=== PATIENT | male | born 1990 | race African-American/Black ===

== ENCOUNTER 2017-09-02 15:41 | Emergency (ER) | payer SELFPAY ==
[~2017-09-02] VITALS: Ht 182.9 cm; Wt 77.1 kg
--- NOTE | 2017-09-02 16:33 | PHYS DOC ---
General Chief Complaint: ABDOMINAL PAIN Stated Complaint: ABDOMINAL PAIN,THINKS HAVING ALLERGIC REACTION Time Seen by MD: 16:29 Source: patient Exam Limitations: no limitations Problems: History of Present Illness Initial Comments Patient is a 27-year-old male who comes to the ED complaining of severe abdominal pain. Patient states that last night he was seen at [facility] emergency department with a complaint of hemorrhoids, somehow threw that evaluation he was diagnosed with urethritis and received Rocephin 1 g IM and Zithromax 1 g by mouth. He states that he tolerated those medications well and that he went home and has been resting. He says less than an hour before presenting to this facility today he was sitting on the sofa watching TV with his grandmother and he developed sudden onset severe epigastric/right sided abdominal pain. He describes it as if he's being stabbed, 10 out of 10, he cannot find a position of comfort and relays that the pain does radiate to his right flank. Last by mouth intake was pizza shortly before the pain began, he denies nausea vomiting, states his appetite is intact, last bowel movement was this morning described as normal, does state he's had some decreased urination but has seen no blood. He denies history of prior right upper quadrant pains, denies history of kidney stones, denies fever chills sweats or myalgias. He states his grandmother dropped him off here for further evaluation, she thinks he is having an allergic reaction to a medication he was given last night. Patient denies any rash no face throat or intraoral swelling no dyspnea or cough wheeze lump in throat or other respiratory symptoms. Patient is somewhat of a vague historian, does not appear to be altered/ intoxicated but rather either doesn't fully grasp the details of his evaluation and treatment at [facility] or perhaps wishes to be evasive. Patient denies frequent NSAID of alcohol intake, admits to smoking cigarettes and marijuana occasionally recreationally denies any other substance abuse. [facility] medical records have been requested. ED vital signs: 99.4, 55, 60 seen, 142/83, 100% room air Timing/Duration: 1 hour Severity: severe Modifying Factors: worse with eating, improves with other Associated Symptoms: other Allergies: Coded Allergies: No Known Drug Allergies (Unverified , 09/02/17) Past Medical History Medical History: no pertinent history Surgical History: noncontributory Social History Smoker: cigarettes Alcohol: occasionally Drugs: marijuana Review of Systems Constitutional: denies chills, denies diaphoresis, denies fever, denies malaise EENTM: denies nose congestion, denies throat pain, denies throat swelling, denies mouth swelling Respiratory: denies cough, denies shortness of breath, denies wheezing Cardiovascular: denies chest pain, denies palpitations, denies syncope Gastrointestinal: see HPI Genitourinary: see HPI Musculoskeletal: denies back pain, denies joint swelling, denies muscle pain, denies muscle stiffness, denies neck pain Psychiatric/Neurological: denies headache, denies numbness, denies paresthesia , denies weakness Hematologic/Lymphatic: denies blood clots, denies easy bleeding, denies easy bruising Immunological/Allergic: denies food allergy, denies grass allergy, denies mold allergy, denies pollen allergy Physical Exam General Appearance: moderate distress, thin Eyes: bilateral eye PERRL, bilateral eye EOMI, bilateral eye other ( conjunctivae injected no icterus) Ear, Nose, Throat: hearing grossly normal, normal ENT inspection, normal pharynx Neck: non-tender, supple Respiratory: normal breath sounds, no respiratory distress Cardiovascular: normal peripheral pulses, regular rate, rhythm Gastrointestinal: soft (nondistended, epigastric tenderness to palpation no rebound or guarding negative Tavarez negative McBurney no masses palpable no skin changes bowel sounds diminished but present) Rectal: deferred Back: no CVA tenderness, no vertebral tenderness Extremities: non-tender, normal inspection Neurologic/Psychiatric: 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 Normal saline, Toradol, and morphine given as well. PATIENT: MARITZA CEJA ACCOUNT: [id number] : 1990 LOCATION: ER AGE: 27 SEX: M EXAM STATUS: REG ER ORD. PHYSICIAN: COLIN,ANGELIQUE K DO REASON: R abd pain r/o stone/appy PROCEDURE: CT ABDOMEN PELVIS WO CONTRAST CT study of the abdomen and pelvis without contrast Clinical indications: Upper abdominal pain and epigastric pain for 2 hours. Increasing in severity over time. No hematuria. Technique: Noncontrast helical CT scanning of the abdomen and pelvis was performed. Without contrast, the sensitivity to detect organ pathology and GI tract pathology is decreased. PQRS Compliance Statement: One or more of the following individualized dose reduction techniques were utilized for this examination: 1. Automated exposure control 2. Adjustment of the mA and/or kV according to patient size 3. Use of iterative reconstruction technique Comparison: July 15, 2008. Findings: The liver and spleen and pancreas are homogeneous in appearance on this noncontrast study. However, organ pathology may be missed without IV contrast especially given the lack of mesenteric and retroperitoneal fat. No hydronephrosis or hydroureter or urinary tract stone is evident. There is a lateral prostatic calcification. No perinephric fluid collection is seen on either side. No focal aneurysmal dilatation of the abdominal aorta is seen. No bulky abdominal or pelvic lymphadenopathy is seen. Urinary bladder is not abnormally distended. No obstructive bowel pattern is evident. Mild fecal retention is seen. The appendix is not visualized in this study. There are no CT findings indicative of appendicitis. No free fluid or free air is seen. The body and antrum of the stomach are nondistended and difficult to evaluate. No lung base consolidation is seen. No osteolytic process is seen. IMPRESSION: The sensitivity of the study is decreased due to a lack of IV contrast and GI contrast material. No obvious acute abnormality of the abdomen or pelvis is seen otherwise. DICTATED AND SIGNED BY: JIM CARMONA MD DATE: 09/02/17 2278 CC: PCP,ASHLEY; ANGELIQUE SHAW DO ~ Pertinent labs: AST 236, ALT 132, urinalysis with squamous epithelial contamination no significant hematuria. Urine drug screen positive for cocaine, marijuana, opiates I reevaluated the patient after results were back. He is now sitting up comfortable denies discomfort. He once again denies excessive alcohol NSAID or even acetaminophen intake. I discussed the likelihood that his recreational substance abuse was a major contributor to his current symptoms and he nodded his head in agreement. I discussed his elevated liver function tests but other than that no emergent medical condition requiring further evaluation in the emergency department. I discussed close follow-up with primary care doctor to recheck liver function tests and ensure they are trending down, I advised the patient that if not he may need it hepatitis screen or liver ultrasound, and possibly specialty referral as an outpatient. I discussed prescription and over- the-counter medications including avoidance of alcohol and Tylenol as well as discontinuing substance abuse. I discussed signs and symptoms to monitor for as well as indications for urgent return to the department. The patient's questions were answered to his satisfaction and he expressed agreement and understanding with treatment plan. He left the department his grandmother picking him up denying any discomfort. Departure Time of Disposition: 19:12 Disposition: 01 HOME, SELF-CARE Diagnosis: abdominal pain, cocaine abuse, elevated LFTs Condition: STABLE Patient Instructions: Abdominal Pain, Cocaine Abuse-Brief Additional Instructions: Discontinue substance abuse, seek medical assistance if necessary. Avoid alcohol and acetaminophen until follow-up with your doctor. Clear liquids today, advance diet slowly tomorrow as tolerated. Prescription: Dicyclomine Follow-up with your doctor in 1-2 days to recheck liver function tests. May need further outpatient workup or specialty referral. No driving or operating machinery while under the influence of sedative medication. Return to the ED with new or changing symptoms. ANGELIQUE SHAW DO Sep 02, 2017 16:33
[2017-09-02] MEDS ORDERED: FAMOTIDINE 20 MG/2 ML VIAL IVP ONE (16:45)
[2017-09-02] MEDS ORDERED: ONDANSETRON PF 4 MG/2 ML VIAL. IV ONE (16:45)
[2017-09-02] MEDS ORDERED: KETOROLAC 30 MG/ML VIAL. IV ONE (16:45)
[2017-09-02] MEDS ORDERED: LIDO:MAALOX 1:1 20 ML SINGLE DOSE PO ONE (16:45)
[2017-09-02] MEDS ORDERED: IV NORMAL SALINE 1,000ML 1,000 ML IV SCH (16:45)
[2017-09-02] MEDS: MORPHINE SULFATE 4 MG/ML DISP.SYRIN. IV/SQ PRN ×2 (16:49→18:06)
[2017-09-02 17:18] LABS: BASO % 1 % (0-3); EOS # 0.1 x10^3/uL (0.0-0.7); EOS % 2 % (0-3); HEMATOCRIT 49.1 % (39.0-53.0); HEMOGLOBIN 16.3 g/dL (13.0-17.5); LYMPH # 0.5 x10^3/uL (1.0-4.8); LYMPH % 8 % (24-48); MEAN CORPUSCULAR HEMOGLOBIN 28 pg (25-35); MEAN CORPUSCULAR HGB CONC 33 g/dL (31-37); MEAN CORPUSCULAR VOLUME 84 fL (79-100); MONO # 0.4 x10^3/uL (0.0-1.1); MONO % 7 % (0-9); NEUT # 5.3 x10^3uL (1.8-7.7); NEUT % 82 % (31-73); PLATELET COUNT 210 x10^3/uL (140-400); RED BLOOD COUNT 5.85 x10^6/uL (4.30-5.70); RED CELL DISTRIBUTION WIDTH 15.4 % (11.5-14.5); WHITE BLOOD COUNT 6.4 x10^3/uL (4.0-11.0)
[2017-09-02 17:33] LABS: ALBUMIN/GLOBULIN RATIO 1.1 (1.0-1.7); CALCIUM 9.2 mg/dL (8.5-10.1); GFR 108.5; POTASSIUM 4.1 mmol/L (3.5-5.1); TOTAL PROTEIN 7.5 g/dL (6.4-8.2)
--- NOTE | 2017-09-02 17:33 | RAD ---
CT study of the abdomen and pelvis without contrast Clinical indications: Upper abdominal pain and epigastric pain for 2 hours. Increasing in severity over time. No hematuria. Technique: Noncontrast helical CT scanning of the abdomen and pelvis was performed. Without contrast, the sensitivity to detect organ pathology and GI tract pathology is decreased. PQRS Compliance Statement: One or more of the following individualized dose reduction techniques were utilized for this examination: 1. Automated exposure control 2. Adjustment of the mA and/or kV according to patient size 3. Use of iterative reconstruction technique Comparison: July 15, 2008. Findings: The liver and spleen and pancreas are homogeneous in appearance on this noncontrast study. However, organ pathology may be missed without IV contrast especially given the lack of mesenteric and retroperitoneal fat. No hydronephrosis or hydroureter or urinary tract stone is evident. There is a lateral prostatic calcification. No perinephric fluid collection is seen on either side. No focal aneurysmal dilatation of the abdominal aorta is seen. No bulky abdominal or pelvic lymphadenopathy is seen. Urinary bladder is not abnormally distended. No obstructive bowel pattern is evident. Mild fecal retention is seen. The appendix is not visualized in this study. There are no CT findings indicative of appendicitis. No free fluid or free air is seen. The body and antrum of the stomach are nondistended and difficult to evaluate. No lung base consolidation is seen. No osteolytic process is seen. IMPRESSION: The sensitivity of the study is decreased due to a lack of IV contrast and GI contrast material. No obvious acute abnormality of the abdomen or pelvis is seen otherwise.
[2017-09-02 18:22] LABS: BARBITURATES NEG (NEG); BENZODIAZEPINES NEG (NEG); BILIRUBIN,URINE NEG (NEG); CANNABINOIDS POS (NEG); CLARITY,URINE HAZY; COCAINE POS (NEG); COLOR,URINE YELLOW; GLUCOSE,URINE NEG (NEG); METHADONE NEG (NEG); OPIATES POS (NEG); PHENCYCLIDINE NEG (NEG)
[2017-09-02 18:24] LABS: BACTERIA,URINE 0 /HPF (0-FEW); NITRITE,URINE NEG (NEG); SQUAMOUS EPITHELIAL CELL,UR FEW /LPF; UROBILINOGEN,URINE 2 mg/dL (0.2 mg/dL)
[2017-09-02 18:29] LABS: AMPHETAMINE/METHAMPHETAMINE NEG (NEG)
[2017-09-02 19:16] VITALS: BP 133/94
== END 2017-09-02 19:18 | disposition home or self-care (01) ==
LOC: ER 15:41
DX: R10.13 Epigastric pain (principal); F14.10 Cocaine abuse, uncomplicated; F17.210 Nicotine dependence, cigarettes, uncomplicated; R79.89 Other specified abnormal findings of blood chemistry
CPT/HCPCS: 36415; 74176; 80053; 80307; 81001; 83690; 85025; 87086; 96361; 96374; 96375; 96376; 99285; J1885; J2270; J2405; S0028; G0479; J7030

== ENCOUNTER 2017-12-04 12:27 | Emergency (ER) | payer OTHER ==
[2017-12-04] MEDS ORDERED: DOXY100C2 PO (13:15)
--- NOTE | 2017-12-04 13:15 | PHYS DOC ---
Past History Past Medical History: No Pertinent History Past Surgical History: Other Alcohol Use: Occasionally Drug Use: Marijuana Adult General Chief Complaint Chief Complaint: SEXU[facility] TRANSMITTED [facility]EASE [facility] HPI Patient is a 27 year old male who presents with complaint of exposure to sexually transmitted infection. Patient states that he was notified by his current sexual partner that he would need to be treated for a sexually transmitted infection as she tested positive proximally one week ago. Patient states that he started having symptoms of intermittent right-sided cramping after being notified of this and is. Patient denies the presence of nausea or vomiting. Patient has not noticed any abnormal penile discharge but does admit to feeling "warmness" with urination. The patient states that he has had sexual intercourse with multiple partners and he feels that he could have contracted the disease and passed it onto his current sexual partner. Review of Systems Review of Systems Constitutional: Denies fever or chills [] Eyes: Denies change in visual acuity, redness, or eye pain [] HENT: Denies nasal congestion or sore throat [] Respiratory: Denies cough or shortness of breath [] Cardiovascular: No additional information not addressed in HPI [] GI: Denies abdominal pain, nausea, vomiting, bloody stools or diarrhea [] : Dysuria, intermittent right flank pain[] Musculoskeletal: Denies back pain or joint pain [] Integument: Denies rash or skin lesions [] Neurologic: Denies headache, focal weakness or sensory changes [] All other systems were reviewed and found to be within normal limits, except as documented in this note. Allergies Allergies Allergies Coded Allergies Type Severity Reaction Last Updated Verified No Known Drug Allergies 09/02/17 No Physical Exam Physical Exam Constitutional: Well developed, well nourished, no acute distress, non-toxic appearance. [] HENT: Normocephalic, atraumatic, bilateral external ears normal, oropharynx moist, no oral exudates, nose normal. [] Eyes: PERRLA, EOMI, conjunctiva normal, no discharge. [] Neck: Normal range of motion, no tenderness, supple, no stridor. [] Cardiovascular:Heart rate regular rhythm, no murmur [] Lungs & Thorax: Bilateral breath sounds clear to auscultation [] Abdomen: Bowel sounds normal, soft, no tenderness, no masses, no pulsatile masses. [] Skin: Warm, dry, no erythema, no rash. [] Back: No tenderness, no CVA tenderness. [] Extremities: No tenderness, no cyanosis, no clubbing, ROM intact, no edema. [] Neurologic: Alert and oriented X 3, normal motor function, normal sensory function, no focal deficits noted. [] Current Patient Data Vital Signs Vitals were reviewed and are stable Lab Results Laboratory Tests Test 12/04/17 13:10 Urine Collection Type Void Urine Color Inna Urine Clarity Hazy Urine pH 6.0 Urine Specific [place] 1.015 Urine Protein Neg Urine Glucose (UA) Neg mg/dL Urine Ketones (Stick) Neg mg/dL Urine Blood Trace Urine Nitrite Neg Urine Bilirubin Neg Urine Urobilinogen Dipstick 0.2 mg/dL Urine Leukocyte Esterase Neg Urine RBC Rare /HPF Urine WBC Rare /HPF Urine Squamous Epithelial Cells Occ /LPF Urine Bacteria 0 /HPF Current Medications Medications (Trade) Dose Ordered Sig/Edwin Route PRN Reason Start Time Stop Time Status Last Admin Dose Admin Ceftriaxone Sodium (Rocephin Im) 250 mg 1X ONCE IM 12/04/17 13:30 12/04/17 13:31 DC 12/04/17 13:33 Doxycycline Hyclate (Vibra-Tab) 100 mg 1X ONCE PO 12/04/17 13:30 12/04/17 13:31 DC 12/04/17 13:29 Metronidazole (Flagyl) 2,000 mg 1X ONCE PO 12/04/17 13:30 12/04/17 13:31 DC 12/04/17 13:29 Lidocaine HCl 20 ml STK-MED ONCE .ROUTE 12/04/17 13:26 12/04/17 13:27 DC EKG EKG Not performed[] Radiology/Procedures Radiology/Procedures Not performed[] Course & Med Decision Making Course & Med Decision Making Pertinent Labs and Imaging studies reviewed. (See chart for details) Patient was treated with IM Rocephin, oral doxycycline, and oral Flagyl in the emergency department. The patient will continue on 10 day course of doxycycline for outpatient therapy. Recommended safe sex practices to the patient. Advised return emergency department for any worsening symptoms. Patient voiced understanding and in agreement with treatment plan. Dragon Disclaimer Dragon Disclaimer This electronic medical record was generated, in whole or in part, using a voice recognition dictation system. Departure Departure: Impression: Primary Impression: Sexually transmitted infection Disposition: 01 HOME, SELF-CARE Condition: IMPROVED Referrals: PCPASHLEY (PCP) Patient Instructions: Sexually Transmitted Disease Additional Instructions: Refrain from any sexual activity until you have completed treatment and any sexual partners have been treated for sexually transmitted infection. Use of condoms during sexual intercourse will help reduce risk of sexually transmitted infection and unwanted . Return to the emergency department for any worsening symptoms. Scripts Doxycycline Hyclate (DOXYCYCLINE HYCLATE) 100 Mg Capsule 1 CAP PO BID, #20 CAP Prov: CONNOR HUERTA MD 12/04/17 CONNOR HUERTA MD Dec 04, 2017 13:15
[2017-12-04] MEDS ORDERED: LIDOCAINE 1% Multi-Dose 20 ML VIAL. ONE (13:26)
[2017-12-04] MEDS ORDERED: DOXYCYCLINE HYCLATE 100 MG TABLET PO ONE (13:30)
[2017-12-04] MEDS ORDERED: metroNIDAZOLE 500 MG TABLET PO ONE (13:30)
[2017-12-04] MEDS ORDERED: cefTRIAXone IM 250 MG VIAL IM ONE (13:30)
[2017-12-04 13:35] LABS: BACTERIA,URINE 0 /HPF (0-FEW); BILIRUBIN,URINE NEG (NEG); CLARITY,URINE HAZY; COLOR,URINE AMBER; GLUCOSE,URINE NEG (NEG); NITRITE,URINE NEG (NEG); RBC,URINE RARE /HPF (0-2); SQUAMOUS EPITHELIAL CELL,UR OCC /LPF; UROBILINOGEN,URINE 0.2 mg/dL (0.2 mg/dL); WBC,URINE RARE /HPF (0-4)
[2017-12-04 13:39] VITALS: BP 147/96
== END 2017-12-04 13:39 | disposition home or self-care (01) ==
LOC: ER 12:27
DX: A64 Unspecified sexually transmitted disease (principal); F12.10 Cannabis abuse, uncomplicated
CPT/HCPCS: 36415; 81001; 87491; 87591; 96372; 99284; J0696

== ENCOUNTER 2018-08-16 14:03 | Emergency (ER) | payer SELFPAY ==
[~2018-08-16] VITALS: Ht 180.3 cm; Wt 66.8 kg
[~2018-08-16 14:03] MED LIST: DOXY100C2 PO
[2018-08-16 14:49] VITALS: BP 127/86
[2018-08-16] MEDS ORDERED: KETOROLAC 60 MG/2 ML VIAL. IM ONE (15:30)
[2018-08-16] MEDS ORDERED: NAPR-683 PO (15:52)
[2018-08-16] MEDS ORDERED: AMOX500C PO (15:52)
--- NOTE | 2018-08-16 15:52 | PHYS DOC ---
Past History Past Medical History: No Pertinent History Past Surgical History: Other Smoking: Cigarettes Additional Smoking Information: 10/30 ppd Alcohol Use: None Drug Use: Marijuana Adult General Chief Complaint Chief Complaint: SORE THROAT HPI HPI Patient is a 28-year-old male patient with complaining of sore throat for the last 3 days as a constant pain that getting worse with swallowing. Patient complains of subjective fever and generalized weakness without contact, vomiting and diarrhea, history of frequent sore throats. Review of Systems Review of Systems Constitutional: Reports fever Eyes: Denies change in visual acuity, redness, or eye pain [] HENT: Reports sore throat Respiratory: Denies cough or shortness of breath [] Cardiovascular: No additional information not addressed in HPI [] GI: Denies abdominal pain, nausea, vomiting, bloody stools or diarrhea [] : Denies dysuria or hematuria [] Musculoskeletal: Denies back pain or joint pain [] Integument: Denies rash or skin lesions [] Neurologic: Denies headache, focal weakness or sensory changes [] Endocrine: Denies polyuria or polydipsia [] All other systems were reviewed and found to be within normal limits, except as documented in this note. Current Medications Current Medications Current Medications Medications (Trade) Dose Ordered Sig/Edwin Start Time Stop Time Status Last Admin Dose Admin Ketorolac Tromethamine (Toradol Im) 60 mg 1X ONCE 08/16/18 15:30 08/16/18 15:31 DC 08/16/18 15:15 60 MG Allergies Allergies Allergies Coded Allergies Type Severity Reaction Last Updated Verified No Known Drug Allergies 12/04/17 No Physical Exam Physical Exam Constitutional: Well developed, well nourished, mild distress, non-toxic appearance. [] HENT: Normocephalic, atraumatic, bilateral external ears normal, oropharynx moist, pharyngeal edema and erythema without oral exudates, nose normal. [] Eyes: PERRLA, EOMI, conjunctiva normal, no discharge. [] Neck: Normal range of motion, no tenderness, supple, no stridor. [] Cardiovascular:Heart rate regular rhythm, no murmur [] Lungs & Thorax: Bilateral breath sounds clear to auscultation [] Skin: Warm, dry, no erythema, no rash. [] Back: No tenderness, no CVA tenderness. [] Extremities: No tenderness, no cyanosis, no clubbing, ROM intact, no edema. [] Neurologic: Alert and oriented X 3, normal motor function, normal sensory function, no focal deficits noted. [] Psychologic: Affect normal, judgement normal, mood normal. [] Current Patient Data Vital Signs Vital Signs Date Time Temp Pulse Resp B/P (MAP) Pulse Ox O2 Delivery O2 Flow Rate FiO2 08/16/18 14:49 99.8 100 16 99 Room Air Lab Results Laboratory Tests Test 08/16/18 15:30 Group A Streptococcus Rapid Negative (NEGATIVE) EKG EKG [] Radiology/Procedures Radiology/Procedures [] Course & Med Decision Making Course & Med Decision Making Pertinent Labs reviewed. (See chart for details) Evaluation of patient in ER showed 28-year-old male patient with complaining of sore throat and subjective fever for 3 days. Patient had pharyngeal erythema and edema with negative strep test. Plan discharge patient home with diagnosis of acute pharyngitis. Dragon Disclaimer Dragon Disclaimer This electronic medical record was generated, in whole or in part, using a voice recognition dictation system. Departure Departure: Impression: Primary Impression: Acute pharyngitis Additional Impressions: Tobacco abuse Tobacco abuse counseling Disposition: HOME, SELF-CARE (at 1550) Condition: IMPROVED Referrals: PCPASHLEY (PCP) Patient Instructions: Smoking Cessation, Tips For Success, Viral and Bacterial Pharyngitis Additional Instructions: Drink plenty of liquids Follow-up with your primary care physician in 3-5 days Return to ER if not getting better Scripts Amoxicillin (AMOXICILLIN) 500 Mg Capsule 1 CAP PO Q8HRS, #30 CAP Prov: FAWAD ARTEAGA MD 08/16/18 Naproxen (NAPROSYN) 500 Mg Tablet 1 TAB PO BID, #20 TAB Prov: FAWAD ARTEAGA MD 08/16/18 Problem Qualifiers FAWAD ARTEAGA MD Aug 16, 2018 15:52
== END 2018-08-16 15:53 | disposition home or self-care (01) ==
LOC: ER 14:03
DX: J02.9 Acute pharyngitis, unspecified (principal); F17.210 Nicotine dependence, cigarettes, uncomplicated; Z71.6 Tobacco abuse counseling
CPT/HCPCS: 87070; 87880; 96372; 99283; J1885

== ENCOUNTER 2019-11-15 00:35 | Emergency (ER) | payer SELFPAY ==
[~2019-11-15] VITALS: Ht 180.3 cm; Wt 74.4 kg
[~2019-11-15 00:35] MED LIST changes: +AMOX500C PO; +NAPR-683 PO
[2019-11-15] MEDS ORDERED: CLIN300C8 PO (01:37)
--- NOTE | 2019-11-15 01:37 | PHYS DOC ---
Past History Past Medical History: No Pertinent History Past Surgical History: Other Smoking: Cigarettes Alcohol Use: None Drug Use: Marijuana Adult General Chief Complaint Chief Complaint: DENTAL PROBLEM HPI HPI 29-year-old male presents with right upper dental pain. The patient has had a fractured tooth in this area for some time. He was placed on antibiotics and finished those 3 days ago. The pain has returned. It is intermittent. It was severe enough this evening that brought him to tears. The patient has not been able to see a dentist yet. He denies fever or chills. He has no other complaints at this time. Review of Systems Review of Systems Constitutional: Denies fever or chills [] Eyes: Denies change in visual acuity, redness, or eye pain [] HENT: Dental pain. Denies nasal congestion or sore throat [] Respiratory: Denies cough or shortness of breath [] Cardiovascular: No additional information not addressed in HPI [] GI: Denies abdominal pain, nausea, vomiting, bloody stools or diarrhea [] : Denies dysuria or hematuria [] Musculoskeletal: Denies back pain or joint pain [] Integument: Denies rash or skin lesions [] Neurologic: Denies headache, focal weakness or sensory changes [] Endocrine: Denies polyuria or polydipsia [] All other systems were reviewed and found to be within normal limits, except as documented in this note. Allergies Allergies Allergies Coded Allergies Type Severity Reaction Last Updated Verified No Known Drug Allergies 11/15/19 No Physical Exam Physical Exam Constitutional: Well developed, well nourished, no acute distress, non-toxic appearance. [] HENT: Normocephalic, atraumatic, bilateral external ears normal, oropharynx moist, no oral exudates, nose normal. Fractured tooth #2. Poor dentition overall[] Eyes: PERRLA, EOMI, conjunctiva normal, no discharge. [] Neck: Normal range of motion, no tenderness, supple, no stridor. [] Cardiovascular:Heart rate regular rhythm, no murmur [] Lungs & Thorax: Bilateral breath sounds clear to auscultation [] Abdomen: Bowel sounds normal, soft, no tenderness, no masses, no pulsatile masses. [] Skin: Warm, dry, no erythema, no rash. [] Back: No tenderness, no CVA tenderness. [] Extremities: No tenderness, no cyanosis, no clubbing, ROM intact, no edema. [] Neurologic: Alert and oriented X 3, normal motor function, normal sensory function, no focal deficits noted. [] Psychologic: Affect normal, judgement normal, mood normal. [] EKG EKG [] Radiology/Procedures Radiology/Procedures [] Course & Med Decision Making Course & Med Decision Making Pertinent Labs and Imaging studies reviewed. (See chart for details) The patient does appear to have a dental infection in the right upper area. I stressed to him the importance of getting into a dentist as soon as possible. I will give him 7 days of clindamycin. I told him that this is likely to come right back once he finishes the medication. He states verbal understanding. We will give him the first dose in the ED. He is stable for discharge at this time. [] Dragon Disclaimer Dragon Disclaimer This electronic medical record was generated, in whole or in part, using a voice recognition dictation system. Departure Departure: Impression: Primary Impression: Dental abscess Disposition: 01 HOME, SELF-CARE Condition: STABLE Referrals: PCP,ASHLEY (PCP) Patient Instructions: Dental Abscess Scripts Clindamycin Hcl (CLINDAMYCIN HCL) 300 Mg Capsule 1 CAP PO TID for dental infection, #21 CAP Prov: ZABRINA HOLDER DO 11/15/19 ZABRINA HOLDER DO Nov 15, 2019 01:37
[2019-11-15 02:00] VITALS: BP 124/84
[2019-11-15] MEDS ORDERED: CLINDAMYCIN HCL 150 MG CAPSULE PO ONE (02:00)
[2019-11-15] MEDS ORDERED: HYDROcodone/APAP 5/325MG 1 TAB TABLET PO ONE (02:30)
== END 2019-11-15 02:15 | disposition home or self-care (01) ==
LOC: ER 00:35
DX: K04.7 Periapical abscess without sinus (principal); F17.210 Nicotine dependence, cigarettes, uncomplicated
CPT/HCPCS: 99283